=== PATIENT | female | born 1985 | race Caucasian/White ===

== ENCOUNTER 2018-11-27 14:09 | Outpatient (CLI) | payer OTHER ==
[2018-11-27 16:47] LABS: ADD UMIC YES; UR ASCORBIC ACID NEGATIVE (NEGATIVE); UR BACTERIA FEW /HPF (NONE SEEN); UR BILIRUBIN (Dip) NEGATIVE (NEGATIVE); UR BLOOD (Dip) NEGATIVE (NEGATIVE); UR CLARITY CLOUDY (CLEAR); UR COLOR YELLOW (YELLOW); UR GLUCOSE (Dip) NEGATIVE (NEGATIVE); UR KETONES (Dip) TRACE mg/dL (NEGATIVE); UR LEUKOCYTE ESTERASE (Dip) 3+ Leu/ul (NEGATIVE); UR NITRITE (Dip) NEGATIVE (NEGATIVE); UR RBC 5 /HPF (0-5); UR SPECIFIC GRAVITY (Dip) 1.013 (1.003-1.030); UR SQUAMOUS EPITHELIAL CELL MODERATE /HPF (FEW); UR TOTAL PROTEIN (Dip) NEGATIVE (NEGATIVE); UR UROBILINOGEN (Dip) NEGATIVE (NEGATIVE); UR WBC 16 /HPF (0-5)
== END 2018-11-27 18:26 | disposition home or self-care (01) ==
LOC: OBT 14:09 → L-D 14:17 → OBT 18:26
DX: O40.3XX0 Polyhydramnios, third trimester, not applicable or unspecified (principal); O26.893 Other specified pregnancy related conditions, third trimester; R10.9 Unspecified abdominal pain; R10.2 Pelvic and perineal pain; R35.0 Frequency of micturition; Z3A.32 32 weeks gestation of pregnancy
CPT/HCPCS: 76817; 76818; 81001; 82731; 87086